=== PATIENT | male | born 1995 | race Caucasian/White ===

== ENCOUNTER 2025-03-03 01:09 | Emergency (ER) | payer BC ==
[~2025-03-03] VITALS: Ht 175.3 cm; Wt 72.6 kg
[2025-03-03 01:11] VITALS: BP 127/87
[2025-03-03] MEDS ORDERED: [UNRECOGNIZED DRUG - CODE] PO (01:26)
[2025-03-03] MEDS ORDERED: FINA1TAB13 PO (01:26)
[2025-03-03] MEDS ORDERED: MONT-41 PO (01:26)
[2025-03-03 01:54] LABS: PLATELET COUNT (AUTO) 204 K/uL (152-348); RED BLOOD CELL COUNT(AUTO) 4.90 MIL/uL (4.06-5.63); RED CELL DISTRIBUTION WIDTH 13.3 % (12.1-16.2); WHITE BLOOD COUNT (AUTO) 8.3 K/uL (3.6-10.2)
[2025-03-03 01:59] LABS: CREATININE 0.9 mg/dL (0.6-1.3); SODIUM SERUM 141 mmol/L (136-145); UREA NITROGEN, BLOOD 13 mg/dL (7-18)
[2025-03-03 02:04] LABS: ASPARTATE AMINOTRANSFERASE 15 U/L (15-37); TOTAL PROTEIN, SERUM 6.9 g/dL (6.4-8.2)
[2025-03-03 02:39] VITALS: BP 125/89; O2SAT 97
== END 2025-03-03 02:40 | disposition home or self-care (01) ==
LOC: ER 01:21
DX: R07.89 Other chest pain (principal); F17.290 Nicotine dependence, other tobacco product, uncomplicated; F32.A Depression, unspecified; Z79.899 Other long term (current) drug therapy; Z88.0 Allergy status to penicillin; Z98.890 Other specified postprocedural states
CPT/HCPCS: 36415; 71045; 84484; 85025; A4606; A4663